=== PATIENT | male | born 1995 | race Caucasian/White ===

== ENCOUNTER 2018-10-02 12:13 | Emergency (ER) | payer OTHER ==
[~2018-10-02] VITALS: Ht 180.3 cm; Wt 86.4 kg
[2018-10-02 12:16] VITALS: BP 133/80; PULSE 58; TEMP 97.4
== END 2018-10-02 14:06 | disposition home or self-care (01) ==
LOC: COL.ER 12:13
DX: S01.21XA Laceration without foreign body of nose, initial encounter (principal); R04.0 Epistaxis; Z23 Encounter for immunization; W22.8XXA Striking against or struck by other objects, initial encounter

== ENCOUNTER 2018-10-10 16:04 | Emergency (ER) | payer OTHER ==
[2018-10-10 16:08] VITALS: BP 147/75; PULSE 76; TEMP 98.2
== END 2018-10-10 16:21 | disposition home or self-care (01) ==
LOC: COL.ER 16:04
DX: S01.21XD Laceration without foreign body of nose, subsequent encounter (principal); X58.XXXD Exposure to other specified factors, subsequent encounter